=== PATIENT | male | born 1955 | race Caucasian/White ===

== ENCOUNTER 2017-11-14 17:39 | Observation (INO) | payer OTHER ==
[2017-11-14 22:34] LABS: URINE BLOOD (Dip) POC Negative (NEGATIVE); URINE KETONES (Dip) POC 1+ (NEGATIVE); URINE LEUKOCYTE EST (Dip) POC Negative (NEGATIVE); URINE NITRITE (Dip) POC Negative (NEGATIVE); URINE TOTAL PROTEIN POC Negative (NEGATIVE)
[2017-11-14 22:48] LABS: ADD MAN DIFF? NO
[2017-11-14 22:51] LABS: WHITE BLOOD COUNT 6.3 10^3/ul (4.8-10.8)
[2017-11-14 22:51] LABS: BASOPHIL # 0.1 10^3/ul (0.0-0.1); EOSINOPHILS # 0.1 10^3/ul (0.0-0.5); EOSINOPHILS % 1.3 % (0.0-7.0); HEMATOCRIT 47.6 % (42.0-52.0); HEMOGLOBIN 16.4 g/dl (14.0-18.0); LYMPHOCYTES # 3.1 10^3/ul (0.8-2.9); LYMPHOCYTES % 49.1 % (15.0-51.0); MEAN CORPUSCULAR HEMOGLOBIN 31.1 pg (29.0-33.0); MEAN CORPUSCULAR HGB CONC 34.5 g/dl (32.0-37.0); MEAN CORPUSCULAR VOLUME 90.2 fl (82.0-101.0); MEAN PLATELET VOLUME 9.9 fl (7.4-10.4); MONOCYTE # 0.5 10^3/ul (0.3-0.9); MONOCYTES % 8.4 % (0.0-11.0); NEUTROPHIL # 2.5 10^3/ul (1.6-7.5); PLATELET COUNT 205 10^3/UL (140-415); RED BLOOD COUNT 5.28 10^6/ul (4.70-6.10); RED CELL DISTRIBUTION WIDTH 11.9 % (11.5-14.5)
[2017-11-14 22:54] LABS: ADD UMIC NO; UR ASCORBIC ACID NEGATIVE (NEGATIVE); UR BILIRUBIN (Dip) NEGATIVE (NEGATIVE); UR BLOOD (Dip) NEGATIVE (NEGATIVE); UR CLARITY CLEAR (CLEAR); UR COLOR STRAW (YELLOW); UR GLUCOSE (Dip) 3+ mg/dL (NEGATIVE); UR KETONES (Dip) TRACE mg/dL (NEGATIVE); UR LEUKOCYTE ESTERASE (Dip) NEGATIVE Leu/ul (NEGATIVE); UR NITRITE (Dip) NEGATIVE (NEGATIVE); UR TOTAL PROTEIN (Dip) NEGATIVE (NEGATIVE); UR UROBILINOGEN (Dip) NEGATIVE (NEGATIVE)
[2017-11-14] MEDS: SOD CHLORIDE 0.9% IV (23:04)
[2017-11-14 23:08] LABS: ANION GAP 19 (8-16); BLOOD UREA NITROGEN 17 mg/dl (7-20); CALCIUM 9.6 mg/dl (8.4-10.2); CARBON DIOXIDE 27 mmol/L (21-31); CHLORIDE 97 mmol/L (97-110); CREATININE 0.75 mg/dl (0.61-1.24); GLUCOSE 313 mg/dl (70-220); POTASSIUM 3.6 mmol/L (3.5-5.1); SODIUM 139 mmol/L (135-144)
[2017-11-14 23:34] LABS: LACTIC ACID 2.1 mmol/L (0.5-2.0)
[2017-11-15 00:44] LABS: LACTIC ACID 2.7 mmol/L (0.5-2.0)
[2017-11-15] MEDS: SOD CHLORIDE 0.9% 1,000 ML IV ×2 (02:12→04:56)
[2017-11-15] MEDS ORDERED: DOCUSATE SODIUM 100 MG CAP PO (03:30)
[2017-11-15] MEDS ORDERED: GLUCOSE GEL 15 GRAM TUBE BUCCAL (03:30)
[2017-11-15] MEDS ORDERED: ZOLPIDEM 5 MG TAB PO (03:30)
[2017-11-15] MEDS ORDERED: NACL 0.9% 3 ML SYG IV (03:30)
[2017-11-15] MEDS ORDERED: MAGNESIUM HYDROXIDE 30ML CUP PO (03:30)
[2017-11-15] MEDS ORDERED: GLUCAGON 1 MG INJ IM (03:30)
[2017-11-15] MEDS ORDERED: BISACODYL (EC) 5 MG TAB PO (03:30)
[2017-11-15] MEDS ORDERED: HYDROCODONE/APAP (5/325) TAB PO (03:30)
[2017-11-15] MEDS ORDERED: GLUCOSE GEL 15 GRAM TUBE PO ×2 (03:30)
[2017-11-15] MEDS ORDERED: ONDANSETRON 4 MG INJ IV (03:30)
[2017-11-15] MEDS ORDERED: DEXTROSE 50% 50 ML SYRINGE IV ×2 (03:30)
[2017-11-15] MEDS ORDERED: hydrALAzine 20 MG INJ IV (04:00)
[2017-11-15] MEDS: METOPROLOL (XL) 25 MG TAB PO ×2 (05:01→08:24)
[2017-11-15] MEDS: LISINOPRIL 20 MG TAB PO ×2 (05:01→08:22)
[2017-11-15] MEDS: ACETAMINOPHEN 325 MG TAB PO ×2 (05:03→05:09)
[2017-11-15] MEDS: FAMOTIDINE 20 MG TAB PO (08:20)
[2017-11-15] MEDS: ASPIRIN (EC) 81 MG TAB PO (08:20)
[2017-11-15] MEDS: INSULIN ASPART [NOVOLOG] 3 ML PEN SC ×2 (08:30→12:27)
[2017-11-15] MEDS: INSULIN GLARGINE [LANtus] 3 ML PEN SC (08:31)
[2017-11-15] MEDS ORDERED: LISINOPRIL 20 MG TAB PO (09:00)
[2017-11-15] MEDS ORDERED: METOPROLOL (XL) 25 MG TAB PO (09:00)
[2017-11-15 09:01] LABS: HEMOGLOBIN A1C 12.5 % (0-5.9)
[2017-11-15 09:21] LABS: ADD MAN DIFF? NO
[2017-11-15 09:36] LABS: WHITE BLOOD COUNT 5.6 10^3/ul (4.8-10.8)
[2017-11-15 09:36] LABS: BASOPHIL # 0.1 10^3/ul (0.0-0.1); BASOPHILS % 0.9 % (0.0-2.0); EOSINOPHILS # 0.1 10^3/ul (0.0-0.5); EOSINOPHILS % 1.4 % (0.0-7.0); HEMATOCRIT 40.3 % (42.0-52.0); HEMOGLOBIN 14.2 g/dl (14.0-18.0); LYMPHOCYTES # 2.6 10^3/ul (0.8-2.9); LYMPHOCYTES % 45.3 % (15.0-51.0); MEAN CORPUSCULAR HEMOGLOBIN 31.3 pg (29.0-33.0); MEAN CORPUSCULAR HGB CONC 35.2 g/dl (32.0-37.0); MEAN PLATELET VOLUME 9.9 fl (7.4-10.4); MONOCYTE # 0.5 10^3/ul (0.3-0.9); MONOCYTES % 8.5 % (0.0-11.0); NEUTROPHIL # 2.5 10^3/ul (1.6-7.5); NEUTROPHILS % 43.5 % (39.0-77.0); PLATELET COUNT 186 10^3/UL (140-415); RED BLOOD COUNT 4.53 10^6/ul (4.70-6.10); RED CELL DISTRIBUTION WIDTH 12.2 % (11.5-14.5)
[2017-11-15 09:50] LABS: LACTIC ACID 1.1 mmol/L (0.5-2.0); MAGNESIUM 1.7 mg/dl (1.7-2.5)
[2017-11-15 09:51] LABS: CHOL/HDL RATIO 5.8 RATIO; HDL CHOLESTEROL 41 mg/dl (30-78); LDL CHOLESTEROL,CALCULATED 163 mg/dl; TRIGLYCERIDES 183 mg/dl (0-149)
[2017-11-15 09:51] LABS: CHOLESTEROL 241 mg/dl (100-200)
[2017-11-15 10:04] LABS: T4 (THYROXINE) 6.1 ug/dl (5.5-11.0)
[2017-11-15] MEDS: metFORMIN 500 MG TAB NGT (10:40)
[2017-11-15] MEDS ORDERED: ATORVASTATIN 20 MG TAB PO (21:00)
[2017-11-16] MEDS ORDERED: LISINOPRIL 10 MG TAB PO (09:00)
[2017-11-19 17:41] LABS: PROCALCITONIN <0.10 ng/mL (<0.10)
== END 2017-11-15 15:50 | disposition home or self-care (01) ==
LOC: MS2 11-15 02:01 → E/R 17:39
PROVIDERS: Hospitalist
DX: E11.65 Type 2 diabetes mellitus with hyperglycemia (principal); I10 Essential (primary) hypertension; E86.0 Dehydration; E78.5 Hyperlipidemia, unspecified
CPT/HCPCS: 36415; 71045; 80048; 80061; 81003; 82962; 83036; 83605; 83735; 84145; 84436; 84479; 85025; 96360; 99285-25

== ENCOUNTER 2018-09-13 04:22 | Emergency (ER) | payer OTHER | END 2018-09-13 05:24 | disposition home or self-care (01) | LOC: FTE 04:22 | DX: K59.00 Constipation, unspecified (principal); I10 Essential (primary) hypertension; E11.9 Type 2 diabetes mellitus without complications; Z79.82 Long term (current) use of aspirin; Z79.84 Long term (current) use of oral hypoglycemic drugs | CPT/HCPCS: 82962; 99282 ==